=== PATIENT | female | born 1975 | race Two or more races ===

== ENCOUNTER 2017-11-17 06:26 | Day surgery (SDC) | payer OTHER | END 2017-11-17 18:00 | disposition home or self-care (01) | LOC: CIR.AMB 06:26 | DX: D24.2 Benign neoplasm of left breast (principal) ==

== ENCOUNTER 2018-07-07 07:14 | Emergency (ER) | payer OTHER ==
[~2018-07-07] VITALS: Ht 165.1 cm; Wt 67.1 kg
== END 2018-07-07 09:40 | disposition home or self-care (01) ==
LOC: ER 07:14
DX: J03.90 Acute tonsillitis, unspecified (principal)

== ENCOUNTER 2019-01-08 11:52 | Emergency (ER) | payer OTHER ==
[~2019-01-08] VITALS: Ht 165.1 cm; Wt 61.2 kg
[2019-01-08] MEDS ORDERED: CELEBREX200MG PO (12:22)
== END 2019-01-08 20:59 | disposition home or self-care (01) ==
LOC: ER 11:52
DX: R55 Syncope and collapse (principal)

== ENCOUNTER 2019-04-10 08:39 | Outpatient (CLI) | payer OTHER ==
[~2019-04-10 08:39] MED LIST: CELEBREX200MG PO
== END 2019-04-10 09:12 | disposition home or self-care (01) ==
LOC: RAD 08:39 → MAMO-SONO 08:45 → RAD 09:12
DX: Z12.31 Encounter for screening mammogram for malignant neoplasm of breast (principal); N60.11 Diffuse cystic mastopathy of right breast; N60.12 Diffuse cystic mastopathy of left breast; R10.13 Epigastric pain

== ENCOUNTER → 2020-07-29 | Outpatient (CLI) | payer OTHER | END | disposition home or self-care (01) | LOC: MAMO-SONO 10:30 | PROVIDERS: ATTEND Obstetrics & Gynecology | DX: N60.12 Diffuse cystic mastopathy of left breast (principal); N60.11 Diffuse cystic mastopathy of right breast; Z12.31 Encounter for screening mammogram for malignant neoplasm of breast ==

== ENCOUNTER 2020-12-01 15:09 | Outpatient (CLI) | payer OTHER | END 2020-12-01 15:16 | disposition home or self-care (01) | LOC: EKG 15:09 | PROVIDERS: ATTEND Surgery Plastic and Reconstructive Surgery | DX: Z01.810 Encounter for preprocedural cardiovascular examination (principal) ==

== ENCOUNTER 2021-08-04 08:38 | Outpatient (CLI) | payer OTHER | END 2021-08-04 08:47 | disposition home or self-care (01) | LOC: MAMO-SONO 08:38 | PROVIDERS: ATTEND Obstetrics & Gynecology | DX: Z12.31 Encounter for screening mammogram for malignant neoplasm of breast (principal); N60.11 Diffuse cystic mastopathy of right breast; N60.12 Diffuse cystic mastopathy of left breast ==

== ENCOUNTER 2022-08-09 08:31 | Outpatient (CLI) | payer OTHER | END 2022-08-09 08:56 | disposition home or self-care (01) | LOC: MAMO-SONO 08:31 | PROVIDERS: ATTEND Obstetrics & Gynecology | DX: Z12.31 Encounter for screening mammogram for malignant neoplasm of breast (principal); N60.11 Diffuse cystic mastopathy of right breast; N60.12 Diffuse cystic mastopathy of left breast ==

== ENCOUNTER 2023-01-30 12:04 | Outpatient (CLI) | payer OTHER | END 2023-01-30 13:26 | disposition home or self-care (01) | LOC: SONOGRAMA 12:04 | PROVIDERS: ATTEND Obstetrics & Gynecology | DX: N20.0 Calculus of kidney (principal) ==

== ENCOUNTER → 2023-01-30 13:25 | Outpatient (CLI) | payer OTHER ==
[2023-01-30 14:23] LABS: HEMATOCRIT 40.1 % (36.0-45.00); HEMOGLOBIN 13.7 g/dL (12.0-15.00); MEAN CORPUSCULAR HEMOGLOBIN 31.1 pg (27.00-32.0); MEAN CORPUSCULAR HGB CONC 34.2 g/dl (32.0-36.0); PLATELET COUNT 284 K/uL (150-450); RED BLOOD COUNT 4.41 M/uL (4.00-6.00)
[2023-01-30 14:35] LABS: URINE APPEARANCE Clear; URINE BILIRRUBIN Negative (NEGATIVE); URINE BLOOD Large; URINE COLOR Yellow; URINE GLUCOSE Negative (NEGATIVE); URINE LEUKOCYTE Moderate; URINE NITRATE Negative; URINE PROTEIN 30 (NEGATIVE); URINE UROBILINOGEN 0.2 E.U./dl
[2023-01-30 14:36] LABS: URINE EPITHELIAL CELLS 3.5 uL (0.0-38.8); URINE WBC 189.3 uL (0.0-23.2)
[2023-01-30 14:43] LABS: URINE BACTERIA > 9821.5 uL (0.0-1933)
== END | disposition home or self-care (01) ==
LOC: LAB 13:25
PROVIDERS: ATTEND Obstetrics & Gynecology
DX: R00.9 Unspecified abnormalities of heart beat (principal); N39.0 Urinary tract infection, site not specified

== ENCOUNTER 2023-02-13 14:24 | Outpatient (CLI) | payer OTHER | END 2023-02-13 14:32 | disposition home or self-care (01) | LOC: RAD 14:24 | PROVIDERS: ATTEND Obstetrics & Gynecology | DX: N20.0 Calculus of kidney (principal) ==

== ENCOUNTER 2024-03-04 07:52 | Outpatient (CLI) | payer OTHER | END 2024-03-04 08:06 | disposition home or self-care (01) | LOC: MAMO-SONO 07:52 | PROVIDERS: ATTEND Obstetrics & Gynecology | DX: N60.11 Diffuse cystic mastopathy of right breast (principal); N60.12 Diffuse cystic mastopathy of left breast; Z12.31 Encounter for screening mammogram for malignant neoplasm of breast ==